=== PATIENT | male | born 1965 | race Caucasian/White ===

== ENCOUNTER 2019-06-14 06:35 | Day surgery (SDC) | payer OTHER ==
[~2019-06-14] VITALS: Ht 188 cm; Wt 103.0 kg
[~2019-06-14 06:35] MED LIST: MULTIVITAMINS1 EAC7
--- NOTE | 2019-06-14 08:27 | NUR ---
06/14/19 0827 Kath Sosa 0808 PATIENT INTO RECOVERY, BEDSIDE REPORT RECIEVED. APPEARS DROWSY IN LEFT LATERAL POSITION, OPENS EYES TO VERBAL COMMANDS. NOTED BP LOW. 0815 NEW ORDER FOR ADDIOTIONAL BAG OF LR, DR. BELTRE TO BEDSIDE SPOKE WITH PATIET BRIEFLY. IV FLUIDS INFUSING WELL. PATIENT AWAKE, TITRATED TO ROOM AIR. SATURATIONS 97% RA. 0820 PATIENT AWAKE ON AND OFF IN SEMIFOWLER POSITION. VSS. ANSWERING QUESTIONS AND CONCERNS. BP CONTINUES TO BE LOW.
--- NOTE | 2019-06-15 06:19 | OR ---
[facility] [address], [place] [address] Signed DATE OF OPERATION: 06/14/2019 SURGEON: Allison Beltre MD PREOPERATIVE DIAGNOSES: 1. Mother with colon cancer at age 66. 2. Maternal grandmother with colon cancer at late 80s. 3. Unremarkable colonoscopy at age 48 (2013). POSTOPERATIVE DIAGNOSES: 1. 8-10 mm polyp, mid right colon (tattoo, snare). 2. 5 mm polyp at 70 cm. 3. 3 mm polyp at 55 cm. 4. Minimal sigmoid diverticulosis. PROCEDURES: Colonoscopy with hot biopsy, injection of tattoo, and snare polypectomy. ESTIMATED BLOOD LOSS: None. INDICATIONS: Zach is a 54-year-old gentleman, asked to see me for followup colonoscopy. He explained that his maternal grandmother was diagnosed with colon cancer in her late 80s. His mother was diagnosed with colon cancer at age 66 and from the colon cancer by age 69. Zach had a negative colonoscopy in [place] back in 2013 at the age of 48. More recently, he has no lower GI complaints. In the office, I gave him a pamphlet on colonoscopy. We looked at that together along with the risks including, but not limited to gas bloating, crampy abdominal pain, bleeding, perforation requiring surgery, and missed diagnosis. We also discussed the need for IV conscious sedation. He had expressed understanding and wished to proceed. PROCEDURE NOTE: Zach was taken into our endoscopy suite and placed in the left lateral decubitus position. He was given a total of 5 mg of Versed and 100 mcg of fentanyl to cover the case. A digital rectal exam was performed and this was unremarkable. The adult colonoscope was introduced and advanced quite readily up into the cecum itself. His prep was quite good. We could easily see the appendiceal orifice and ileocecal valve. The scope was then slowly withdrawn. We used a combination of the snare and hot biopsy forceps to remove the polyp in the mid right colon. We left a small tattoo next to that Electronically Signed By: ALLISON BELTRE MD 06/15/19 0619 PATIENT NAME: MORIS CARCAMO OPERATIVE REPORT DATE OF : 69 REPORT #: [id number] PHYSICIAN: ALLISON BELTRE MD PCP: SARAH RUIZ MD REPORT IS CONFIDENTIAL AND NOT TO BE RELEASED WITHOUT AUTHORIZATION [facility] [address] [place] [id number] Signed polypectomy site. The other two polyps were easily removed with the help of hot biopsy forceps. We also could see his diverticula in the sigmoid colon. They were moderate in size, few in number, and scattered about. The rectum was unremarkable. Upon retroflexion of the scope, there was no additional pathology noted above the anal canal. After this, the gas was suctioned out and colonoscope removed. Zach tolerated the procedure quite well. RECOMMENDATIONS: I will see Zach back in my office in 7 to 14 days to review his results. He will need to stay on the 5-year rotation given his personal and family history. Allison Beltre MD ALB/MODL /[id number] cc: MD Allison Gross MD Copies: ALLISON BELTRE MD ~ Electronically Signed By: ALLISON BELTRE MD 06/15/19 0619 PATIENT NAME: MORIS CARCAMO OPERATIVE REPORT DATE OF : 69 REPORT #: [id number] PHYSICIAN: ALLISON BELTRE MD PCP: SARAH RUIZ MD REPORT IS CONFIDENTIAL AND NOT TO BE RELEASED WITHOUT AUTHORIZATION
--- NOTE | 2019-06-15 15:35 | PATH ---
[facility] [address] [place], [place] [address] Signed SPECIMEN(S): A COLON POLYP AT 70 CM SPECIMEN(S): B MID ASCENDING POLYP SPECIMEN(S): C COLON POLYP AT 55 CM SPECIMEN SOURCE: A. COLON POLYP AT 70 CM B. MID ASCENDING POLYP C. COLON POLYP AT 55 CM CLINICAL HISTORY: Pre: Family history of colon cancer. Post: Colon polyps, diverticulosis. MICROSCOPIC DESCRIPTION: Histologic sections of all submitted blocks are examined by light microscopy. These findings, together with the gross examination, support the pathologic diagnosis. FINAL PATHOLOGIC DIAGNOSIS: A. Colon, polyp at 70 cm, polypectomy: - Cauterized colonic mucosa with mucosal lymphoid aggregates. - Negative for dysplasia or malignancy. B. Colon, mid ascending, polyp, polypectomy: - Fragments of tubular adenoma. - Negative for high-grade dysplasia or malignancy. C. Colon, polyp at 55 cm, polypectomy: - Cauterized colonic mucosa with mucosal lymphoid aggregates. - Negative for dysplasia or malignancy. NAL:cml:C2NR GROSS DESCRIPTION: Three specimens are received in three containers, labeled "Carcamo Jovanny." A. The specimen, labeled "Carcamo, 1," and designated on the requisition "colon polyp at 70 cm" is received in formalin and consists of two hernandez soft tissue fragment(s) that measure 0.3 and 0.4 cm in greatest dimension. The specimen is entirely submitted in cassette (A1). B. The specimen, labeled "Carcamo, 2," and designated on the requisition "mid ascending/right polyp," is received in formalin and consists of three hernandez soft tissue fragment(s) that measure 0.3-0.6 cm in greatest dimension. The largest tissue fragment is inked bisected. The specimen is entirely submitted in cassette (B1). C. The specimen, labeled "Carcamo, 3," and designated on the requisition PATIENT NAME: JOVANNY CARCAMO PATHOLOGY DATE OF : 69 REPORT #: [id number] PHYSICIAN: PIERRE PATHOLOGY PCP: SARAH RUIZ MD REPORT IS CONFIDENTIAL AND NOT TO BE RELEASED WITHOUT AUTHORIZATION [facility] [address] [place], [place] [address] Signed "colon polyp 55 cm," is received in formalin and consists of one hernandez soft tissue fragment(s) that measure 0.5 cm in greatest dimension. The specimen is entirely submitted in cassette (C1). FB (under the direct supervision of a pathologist) The Gross Description was prepared using a voice recognition system. The report was reviewed for accuracy; however, sound-alike word errors, addition and/or deletions may occur. If there is any question about this report, please contact Client Services. PERFORMING LABORATORY: The technical component was performed by [email or web address], [address] [place] [id number] (Track Greaser: Lili Nair MD; CLIA# [id number]). Professional interpretation was performed by [facility], [address] [address] (CLIA# [id number]). Diagnostician: Linnette Small MD Pathologist Electronically Signed 06/15/2019 Copies: ~ PATIENT NAME: JOVANNY CARCAMO PATHOLOGY DATE OF : 69 REPORT #: [id number] PHYSICIAN: PIERRE PATHOLOGY PCP: SARAH RUIZ MD REPORT IS CONFIDENTIAL AND NOT TO BE RELEASED WITHOUT AUTHORIZATION
== END 2019-06-14 08:55 | disposition home or self-care (01) ==
LOC: OPS 06:35 → DS 06:35 → OPS 06:45
PROVIDERS: Colon & Rectal Surgery
PROC: 0DBK8ZZ Excision of Ascending Colon, Via Natural or Artificial Opening Endoscopic (ICD-10-PCS; 2019-06-14)
PROC: 0DBE8ZZ Excision of Large Intestine, Via Natural or Artificial Opening Endoscopic (ICD-10-PCS; principal; 2019-06-14 06:45)
DX: Z12.11 Encounter for screening for malignant neoplasm of colon (principal); D12.2 Benign neoplasm of ascending colon; K63.5 Polyp of colon; Z79.899 Other long term (current) drug therapy; Z87.891 Personal history of nicotine dependence
CPT/HCPCS: J2250; J3010; J7121